=== PATIENT | female | born 1950 | race Caucasian/White ===

== ENCOUNTER 2022-12-24 13:12 | Inpatient (IN) | payer MEDICARE ==
[~2022-12-24] VITALS: Ht 152.4 cm; Wt 115.7 kg
[2022-12-24 13:27] VITALS: BP 148/72; PULSE 92; RESP 20; TEMP 97.8; O2SAT 95
[2022-12-24 14:22] LABS: BASOPHILS # (AUTO) 0.1 K/uL (0.00-0.22); BASOPHILS % (AUTO) 0.9 % (0.0-2.0); EOSINOPHILS # (AUTO) 0.2 K/uL (0-0.4); EOSINOPHILS % (AUTO) 1.7 % (0.0-4.0); HEMOGLOBIN 11.3 g/dL (12.0-16.0); LYMPHOCYTES # (AUTO) 1.2 K/uL (2.5-16.5); LYMPHOCYTES % (AUTO) 9.2 % (20.5-51.1); MEAN CORPUSCULAR HEMOGLOBIN 32 pg (27-31); MEAN CORPUSCULAR HGB CONC 32 g/dL (33-37); MEAN CORPUSCULAR VOLUME 100.4 fL (80-94); MONOCYTES # (AUTO) 1.1 K/uL (0.8-1.0); MONOCYTES % (AUTO) 8.6 % (1.7-9.3); NEUTROPHILS # (AUTO) 10.3 K/uL (1.8-7.7); NEUTROPHILS % (AUTO) 79.6 % (42.2-75.2); PLATELET COUNT (AUTO) 352 K/uL (140-450); RED BLOOD CELL COUNT(AUTO) 3.49 MIL/uL (4.20-5.40); RED CELL DISTRIBUTION WIDTH 16.3 % (11.6-13.7); WHITE BLOOD COUNT (AUTO) 12.9 K/uL (4.8-10.8)
[2022-12-24 14:35] LABS: ALANINE AMINOTRANSFERASE 31 U/L (12-78); ALBUMIN 2.7 g/dL (3.4-5.0); ALKALINE PHOSPHATASE 147 U/L (50-136); ANION GAP 12.2 (8-16); ASPARTATE AMINOTRANSFERASE 49 U/L (15-37); CALCIUM 8.5 mg/dL (8.5-10.1); CARBON DIOXIDE 27.4 mmol/L (21-32); CHLORIDE 100 mmol/L (98-107); CREATININE 2.4 mg/dL (0.6-1.3); GLUCOSE 208 mg/dL (74-106); SODIUM SERUM 137 mmol/L (136-145); TOTAL BILIRUBIN 0.6 mg/dL (0.0-1.0); TOTAL PROTEIN, SERUM 7.4 g/dL (6.4-8.2); UREA NITROGEN, BLOOD 34 mg/dL (7-18)
[2022-12-24 14:37] LABS: POTASSIUM 2.6 mmol/L (3.5-5.1)
[2022-12-24] MEDS ORDERED: POTASSIUM CHLORIDE 10 MEQ TABER PO ONE (14:40)
[2022-12-24] MEDS ORDERED: KCL 20 MEQ IN 100 mL PREMIX 100 ML IV ONE (14:40)
[2022-12-24 18:07] LABS: APPEARANCE,URINE CLEAR (CLEAR); BILIRUBIN,URINE NEGATIVE (NEGATIVE); BLOOD, URINE NEGATIVE (NEGATIVE); COLOR,URINE YELLOW (YELLOW); LEUKOCYTE ESTERASE ,URINE NEGATIVE (NEGATIVE); NITRITE, URINE NEGATIVE (NEGATIVE); PROTEIN,URINE 3+ (NEGATIVE); UGLUCOSE NEGATIVE (NEGATIVE); UROBILINOGEN,URINE 0.2 EU/dL (0.2 - 1)
[2022-12-24 18:37] LABS: BACTERIA,URINE None Seen /HPF (None Seen); MUCUS,URINE 1+ /LPF (None Seen); OTHER CASTS, URINE None Seen /LPF (None Seen); RBC,URINE NONE SEEN /HPF (0-5); SQUAMOUS EPITHELIAL CELL,UR 4-10 (MOD) /LPF (0-3 (FEW)); WBC,URINE NONE SEEN /HPF (0-5)
[2022-12-24] MEDS ORDERED: DOCUSATE SODIUM 100 MG GELCAP PO PRN (23:40)
[2022-12-24] MEDS ORDERED: HYDROcodone/APAP 7.5/325 MG 1 TAB PO PRN (23:40)
[2022-12-24] MEDS ORDERED: ONDANSETRON 4 MG/2 ML VIAL IM/IVP PRN (23:40)
[2022-12-24] MEDS ORDERED: ZOLPIDEM 5 MG TAB PO PRN (23:40)
[2022-12-24] MEDS ORDERED: guaiFENesin DM 200/20 MG-10 ML 10 ML UDC PO PRN (23:40)
[2022-12-24] MEDS ORDERED: ACETAMINOPHEN 325 MG TAB PO PRN (23:40)
[2022-12-24] MEDS ORDERED: KCL 20 MEQ IN 100 mL PREMIX 200 ML IV PRN (23:40)
[2022-12-25] MEDS: NACL 0.9% 1,000 ML IV SCH ×2 (00:11→15:48)
[2022-12-25 00:34] LABS: CHOL/HDL RATIO 2.3 (1-4.5); FREE T4 (FREE THYROXINE) 1.04 ng/dL (0.76-1.46); MAGNESIUM 1.5 mg/dL (1.8-2.4); PHOSPHORUS 3.6 mg/dL (2.5-4.9); THYROID STIMULATING HORMONE 3.85 uIU/mL (0.34-3.74)
[2022-12-25 00:39] LABS: INR 0.96 (0.8-1.2); PROTHROMBIN TIME 10.1 secs (10.8-13.4)
[2022-12-25 07:01] LABS: BASOPHILS # (AUTO) 0.1 K/uL (0.00-0.22); BASOPHILS % (AUTO) 0.6 % (0.0-2.0); EOSINOPHILS # (AUTO) 0.7 K/uL (0-0.4); EOSINOPHILS % (AUTO) 7.3 % (0.0-4.0); HEMATOCRIT 31.8 % (36-48); HEMOGLOBIN 10.5 g/dL (12.0-16.0); LYMPHOCYTES # (AUTO) 1.6 K/uL (2.5-16.5); MEAN CORPUSCULAR HEMOGLOBIN 33 pg (27-31); MEAN CORPUSCULAR HGB CONC 33 g/dL (33-37); MEAN CORPUSCULAR VOLUME 99.5 fL (80-94); MONOCYTES % (AUTO) 10.3 % (1.7-9.3); NEUTROPHILS # (AUTO) 6.2 K/uL (1.8-7.7); NEUTROPHILS % (AUTO) 64.8 % (42.2-75.2); PLATELET COUNT (AUTO) 321 K/uL (140-450); RED CELL DISTRIBUTION WIDTH 15.9 % (11.6-13.7); WHITE BLOOD COUNT (AUTO) 9.6 K/uL (4.8-10.8)
[2022-12-25 07:11] LABS: ANION GAP 11.2 (8-16); CALCIUM 7.8 mg/dL (8.5-10.1); CARBON DIOXIDE 29.1 mmol/L (21-32); CHLORIDE 104 mmol/L (98-107); CREATININE 1.8 mg/dL (0.6-1.3); GLUCOSE 130 mg/dL (74-106); SODIUM SERUM 142 mmol/L (136-145); UREA NITROGEN, BLOOD 28 mg/dL (7-18)
[2022-12-25 07:13] LABS: POTASSIUM 2.3 mmol/L (3.5-5.1)
[2022-12-25] MEDS ORDERED: POTASSIUM CHLORIDE 10 MEQ TABER PO SCH (08:30)
[2022-12-25 09:30] VITALS: PULSE 86
[2022-12-25] MEDS: PANTOPRAZOLE 40 MG TABEC PO SCH (10:05)
[2022-12-25] MEDS ORDERED: OMEP1CAP27 PO (11:00)
[2022-12-25] MEDS ORDERED: ATOR20TA PO (11:00)
[2022-12-25] MEDS ORDERED: AMLO10TA PO (11:00)
[2022-12-25] MEDS ORDERED: BUPR75TA PO (11:00)
[2022-12-25] MEDS ORDERED: ALLO200T PO (11:00)
[2022-12-25] MEDS ORDERED: OXYB5TAB44 PO (11:00)
[2022-12-25] MEDS ORDERED: [UNRECOGNIZED DRUG - CODE] (11:00)
[2022-12-25] MEDS ORDERED: DULO40CA2 PO (11:00)
[2022-12-25 12:00] VITALS: BP 131/50; PULSE 87; PULSE 88; RESP 18; TEMP 97.1; O2SAT 93
[2022-12-25] MEDS ORDERED: KCL 20 MEQ IN 100 mL PREMIX 200 ML IV SCH (13:00)
[2022-12-25 14:57] VITALS: PULSE 68; RESP 20; O2SAT 99
[2022-12-25 15:19] VITALS: PULSE 68
[2022-12-25 16:00] VITALS: BP 143/51; PULSE 82; PULSE 85; RESP 18; TEMP 97.4; O2SAT 93
[2022-12-25 20:00] VITALS: BP 158/61; PULSE 88; PULSE 91; RESP 17; TEMP 97.2; O2SAT 94
[2022-12-26] VITALS: BP 154/60; PULSE 89; PULSE 90; RESP 18; TEMP 98.1; O2SAT 96
[2022-12-26 04:00] VITALS: BP 150/47; PULSE 91; PULSE 93; RESP 18; TEMP 96.7; O2SAT 99
[2022-12-26 06:40] LABS: BASOPHILS # (AUTO) 0.1 K/uL (0.00-0.22); BASOPHILS % (AUTO) 0.6 % (0.0-2.0); EOSINOPHILS # (AUTO) 0.7 K/uL (0-0.4); EOSINOPHILS % (AUTO) 6.3 % (0.0-4.0); HEMATOCRIT 31.8 % (36-48); HEMOGLOBIN 10.6 g/dL (12.0-16.0); LYMPHOCYTES # (AUTO) 1.8 K/uL (2.5-16.5); LYMPHOCYTES % (AUTO) 17.1 % (20.5-51.1); MEAN CORPUSCULAR HEMOGLOBIN 33 pg (27-31); MEAN CORPUSCULAR HGB CONC 33 g/dL (33-37); MEAN CORPUSCULAR VOLUME 100.3 fL (80-94); MONOCYTES # (AUTO) 0.9 K/uL (0.8-1.0); MONOCYTES % (AUTO) 8.5 % (1.7-9.3); NEUTROPHILS # (AUTO) 7.2 K/uL (1.8-7.7); NEUTROPHILS % (AUTO) 67.5 % (42.2-75.2); PLATELET COUNT (AUTO) 314 K/uL (140-450); RED BLOOD CELL COUNT(AUTO) 3.17 MIL/uL (4.20-5.40); RED CELL DISTRIBUTION WIDTH 16.3 % (11.6-13.7); WHITE BLOOD COUNT (AUTO) 10.7 K/uL (4.8-10.8)
[2022-12-26 07:00] LABS: ANION GAP 10.1 (8-16); CALCIUM 7.8 mg/dL (8.5-10.1); CHLORIDE 107 mmol/L (98-107); CREATININE 1.7 mg/dL (0.6-1.3); GLUCOSE 133 mg/dL (74-106); POTASSIUM 3.1 mmol/L (3.5-5.1); SODIUM SERUM 144 mmol/L (136-145); UREA NITROGEN, BLOOD 27 mg/dL (7-18)
[2022-12-26] MEDS: NACL 0.9% 1,000 ML IV SCH (07:28)
[2022-12-26 08:00] VITALS: BP 147/66; PULSE 63; PULSE 66; PULSE 86; PULSE 91; RESP 16; RESP 20; TEMP 96.9; O2SAT 96; O2SAT 98
[2022-12-26] MEDS ORDERED: POTASSIUM CHLORIDE 10 MEQ TABER PO SCH (08:02)
[2022-12-26] MEDS ORDERED: MAG SULF 2000 MG/WATER PREMIX 50 ML IV SCH (08:03)
[2022-12-26] MEDS: PANTOPRAZOLE 40 MG TABEC PO SCH (08:41)
[2022-12-26] MEDS ORDERED: LOSARTAN 25 MG TAB PO SCH ×2 (09:00→21:00)
[2022-12-26 12:00] VITALS: BP 150/65; PULSE 90; PULSE 94; RESP 18; TEMP 97; O2SAT 95
[2022-12-27 08:08] LABS: HEMOGLOBIN A1C 5.4 % (4.8-5.6); T4 (THYROXINE) 5.6 ug/dL (4.5-12.0)
== END 2022-12-26 15:45 | disposition home health service (06) | DRG 640 ==
LOC: MED 13:12 → MMU 22:43 → MTU 12-25 07:47
PROVIDERS: ADMIT Family Medicine; ATTEND Family Medicine
DX: E87.6 Hypokalemia (principal); E43 Unspecified severe protein-calorie malnutrition; G93.41 Metabolic encephalopathy; N17.0 Acute kidney failure with tubular necrosis; Z68.42 Body mass index [BMI] 45.0-49.9, adult; M48.56XA Collapsed vertebra, not elsewhere classified, lumbar region, initial encounter for fracture; D63.8 Anemia in other chronic diseases classified elsewhere; E11.22 Type 2 diabetes mellitus with diabetic chronic kidney disease; I12.9 Hypertensive chronic kidney disease with stage 1 through stage 4 chronic kidney disease, or unspecified chronic kidney disease; N18.30 Chronic kidney disease, stage 3 unspecified; R53.1 Weakness; R74.01 Elevation of levels of liver transaminase levels; E66.01 Morbid (severe) obesity due to excess calories; M48.061 Spinal stenosis, lumbar region without neurogenic claudication
CPT/HCPCS: 36415; 71045; 72128; 72131; 80048; 80053; 81001; 82150; 83036; 83690; 83735; 83880; 84100; 84132; 84436; 84439; 84443; 84479; 84484; 85025; 85610; 85730; 87081; 93005; 97112; 97116; 97163-GP; 97530; 99285; J3475; J3480; Q0092

== ENCOUNTER 2023-05-05 14:56 | Emergency (ER) | payer MEDICARE ==
[~2023-05-05] VITALS: Ht 157.5 cm; Wt 72.6 kg
[~2023-05-05 14:56] MED LIST: ALLO200T PO; AMLO10TA PO; ATOR20TA PO; BUPR75TA PO; DULO40CA2 PO; OMEP1CAP27 PO; OXYB5TAB44 PO; [UNRECOGNIZED DRUG - CODE]
[2023-05-05 15:20] VITALS: BP 147/73; PULSE 94; RESP 18; TEMP 98; O2SAT 98
[2023-05-05 18:58] VITALS: BP 147/73; PULSE 94; RESP 18; TEMP 98; O2SAT 98
== END 2023-05-05 18:59 | disposition home or self-care (01) ==
LOC: MED 14:56
DX: S09.90XA Unspecified injury of head, initial encounter (principal); I12.9 Hypertensive chronic kidney disease with stage 1 through stage 4 chronic kidney disease, or unspecified chronic kidney disease; E11.22 Type 2 diabetes mellitus with diabetic chronic kidney disease; N18.9 Chronic kidney disease, unspecified; Z79.4 Long term (current) use of insulin; Z79.899 Other long term (current) drug therapy; W18.30XA Fall on same level, unspecified, initial encounter; Y93.89 Activity, other specified; Y92.89 Other specified places as the place of occurrence of the external cause; Y99.8 Other external cause status
CPT/HCPCS: 70450; 72125; 99284